=== PATIENT | female | born 1945 | race Caucasian/White ===

== ENCOUNTER → 2016-08-21 | Outpatient (CLI) | payer OTHER | LOC: BMCIMAGING 14:07 | PROVIDERS: ATTEND Physician Assistant | DX: M17.0 Bilateral primary osteoarthritis of knee (principal) ==

== ENCOUNTER → 2017-04-18 | Outpatient (CLI) | payer OTHER | LOC: BMCIMAGING 13:40 | PROVIDERS: ATTEND Nurse Practitioner Adult Health | DX: J98.4 Other disorders of lung (principal); I51.7 Cardiomegaly; K44.9 Diaphragmatic hernia without obstruction or gangrene; Z87.891 Personal history of nicotine dependence ==

== ENCOUNTER → 2018-01-07 | Outpatient (CLI) | payer OTHER | LOC: FIMAGING 12:48 | PROVIDERS: ATTEND Orthopaedic Surgery | DX: Z01.818 Encounter for other preprocedural examination (principal); M17.11 Unilateral primary osteoarthritis, right knee ==

== ENCOUNTER 2018-01-30 07:15 | Inpatient (IN) | payer OTHER ==
--- NOTE | 2018-01-30 06:35 | PDHPUP ---
History & Physical Update H&P update statement: This history and physical update is based on an assessment of the patient which was completed after admission or registration (within 24 hours), but prior to the surgery/procedure. H&P update: no change in patient's condition since H&P completed
--- NOTE | 2018-01-30 06:35 | PDIAF ---
- Diagnosis Diagnosis: right knee djd Code Status: Full Code - Medication Management Discharge Medications: Medications to Continue on Transfer Herbals/Supplements -Info Only 1 each PO AD 07/07/12 [Last Taken 10/26/14 08:00] Lisinopril [Zestril 20 mg (RX)] 20 mg PO DAILY 07/07/12 [Last Taken 10/26/14 08: 00] Ascorbic Acid [Vitamin C 500 mg (*)] 500 mg PO DAILY 01/14/18 [Last Taken Unknown] Aspirin [Aspirin 81mg (*)] 81 mg PO Q2D 01/14/18 [Last Taken Unknown] Cyanocobalamin [Vitamin B12 (*)] 1,000 mcg PO DAILY 01/14/18 [Last Taken Unknown ] Docusate Sodium [Colace 100 MG (*)] 100 mg PO BID 01/14/18 [Last Taken Unknown] Ferrous Sulfate [Slow Fe 140 MG (*)] 140 mg PO DAILY 01/14/18 [Last Taken Unknown] Multivitamins [Multivitamin (*)] 1 each PO DAILY 01/14/18 [Last Taken Unknown] clonazePAM [Klonopin (*)] 0.5 mg PO HS PRN 01/14/18 [Last Taken Unknown] Discharge Medications: Refer to the Discharge Home Medication list for PRN reason. - Orders Services needed: Physical Therapy Isolation Type: None Diet Recommendation: no restrictions on diet Diet Texture: Regular Texture Diet Additional Instructions: TOTAL JOINT ARTHROPLASTY DISCHARGE INSTRUCTIONS 1. Your surgeon follows the [facility] protocol for reducing your risk of DVT (blood clots) following surgery. Medication will be ordered to prevent blood clots. A sudden increase in calf pain and/or swelling could indicate a blood clot in your leg. If this occurs, please call your surgeon or his/her assistant signal maintainer. An ultrasound of the leg may be necessary to diagnose a blood clot. If you have conditions that make you a higher risk for blood clots, your surgeon may use more aggressive ways to prevent them. Notify your surgeon if you think you are a high risk for blood clots. 2. Wear your white surgical stockings (GENESIS hose) for 2 weeks. This decreases your swelling and may help prevent blood clots. It is ok to remove GENESIS hose at night time to give your legs a break. 3. Swelling and bruising in the surgical leg is common. If you feel that it is excessive, please notify your surgeon. 4. Elevate your surgical leg with the ankle above the hip several times every day. Please keep the leg straight when you elevate by putting pillows under your foot. Do not put pillows under your knee. This will make being able to fully straighten more difficult. This is uncomfortable, but try to do it as much as possible. 5. For total knee replacements use compressive wrap on your knee for 3-5 days after surgery, then you can discontinue it. 6. Use a walker or crutches for 1-2 weeks. Progress your weight-bearing as tolerated. You may start to use a cane when you feel stable and safe. 7. You will receive physical therapy instructions in the hospital. Continue those exercises at home. There are additional exercises in the total joint booklet you were given before surgery. Outpatient physical therapy will begin 7- 10 days after surgery. Please schedule this in advance. 8. Use ice on your knee at least 3-5 times every day for 30 minutes. This helps reduce pain and swelling. Also use it at night before falling asleep. 9. Leave your surgical dressing in place for 2 weeks. Your dressing is water resistant, but not waterproof. Cover it with Saran Wrap or Mifjo-q-Aujc before showering. You may shower as soon as you feel safe entering a shower. If you notice bleeding from your incision 2 or 3 days after surgery, please notify your surgeon. 10. Due to narcotics, decreased activity and altered diet, most patients experience constipation after surgery. Use brtg-kjd-wwspsyl stool softeners while you are on narcotics. 11. You may drive a car when you are comfortable bearing weight, have good muscular control of your leg and are off narcotics. This usually occurs 2-4 weeks after surgery, depending on which leg was operated on. 12. If there are questions not addressed here, please refer the [facility] book given for more information. If you still have questions, please contact your surgeon s office. 13. If you have a life-threatening emergency, please call 911 and go to the emergency room immediately. For non-life threatening emergencies, please call your physicians office for advice before going to the emergency room. - Follow Up Care Current Providers and Referrals: Toyin Raza MD [Primary Care Provider] - Twan Carrera MD [Medical Doctor] -
[~2018-01-30 07:15] MED LIST: ROPIVACAINE 0.2% 80 MG, EPINEPHrine 0.2 MG, KETOROLAC TROMETHAMINE 30 MG, morphINE 10 M... IU ONE; TRANEXAMIC ACID 1,000 MG in NS 100 ML IV ONE
[2018-01-30] MEDS ORDERED: FAMOTIDINE 20 MG TAB PO ONE (07:51)
[2018-01-30] MEDS ORDERED: ceFAZolin 2 GM/DEXTROSE 100 ML IV ONE (07:51)
[2018-01-30] MEDS ORDERED: ACETAMINOPHEN 325 MG TAB PO ONE (07:51)
[2018-01-30] MEDS ORDERED: LR 1,000 ML IV ONE (07:55)
[2018-01-30] MEDS ORDERED: CALCIUM CHLORIDE 1 GM/10 ML INJ ONE (08:42)
[2018-01-30] MEDS ORDERED: THROMBIN (BOVINE) 5,000 UNIT VIAL TP ONE (08:42)
[2018-01-30] MEDS ORDERED: ceFAZolin 1 GM/5 ML SYR ONE (08:43)
[2018-01-30] MEDS ORDERED: fentaNYL 100 MCG/2 ML INJ IVP PRN (08:49)
[2018-01-30] MEDS ORDERED: ACETAMINOPHEN 500 MG TAB PO PRN (08:49)
[2018-01-30] MEDS ORDERED: MIDAZOLAM 2 MG/2 ML VIAL IVP ONE (08:49)
[2018-01-30] MEDS ORDERED: DEXAMETHASONE 4 MG/ML VIAL IVP PRN (08:49)
[2018-01-30] MEDS ORDERED: oxyCODONE IR 5 MG TAB PO PRN (08:49)
[2018-01-30] MEDS ORDERED: ONDANSETRON 4 MG/2 ML VIAL IVP PRN ×2 (08:49→11:31)
[2018-01-30] MEDS ORDERED: ALBUTEROL 3 ML DEYVIAL IH PRN (08:49)
[2018-01-30] MEDS ORDERED: NALOXONE HCL 0.4 MG/ML INJ IVP PRN (08:49)
--- NOTE | 2018-01-30 08:50 | PDANEPAE ---
ANE History of Present Illness r knee ANE Past Medical History - Cardiovascular History Hx Hypertension: Yes Hx Arrhythmias: No Hx Chest Pain: No Hx Coronary Artery / Peripheral Vascular Disease: No Hx CHF / Valvular Disease: No Hx Palpitations: No Cardiovascular History Comment: left bundle branch block - Pulmonary History Hx COPD: No Hx Asthma/Reactive Airway Disease: No Hx Recent Upper Respiratory Infection: No Hx Oxygen in Use at Home: No Hx Sleep Apnea: No Sleep Apnea Screening Result - Last Documented: Negative - Neurologic History Hx Cerebrovascular Accident: No Hx Seizures: No Hx Dementia: No - Endocrine History Hx Diabetes: No - Renal History Hx Renal Disorders: No - Liver History Hx Hepatic Disorders: No Hepatic History Comment: dick - Neurological & Psychiatric Hx Hx Neurological and Psychiatric Disorders: No - Cancer History Hx Cancer: Yes 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 - Congenital Disorder History Hx Congenital Disorders: No - GI History Hx Gastrointestinal Disorders: No - Other Health History Other Health History: R chronic sciatica with leg weakness - Chronic Pain History Chronic Pain: No - Surgical History Prior Surgeries: Right shoulder partial replacemnt, Cholecystectomy, ANE Review of Systems Review of Systems: - Exercise capacity METS (RN): 4 METS ANE Patient History - Allergies Allergies/Adverse Reactions: levofloxacin [From Levaquin] Allergy (Severe, Verified 10/11/10 10:28) JOINT PAIN - Home Medications Home Medications: Herbals/Supplements -Info Only 1 each PO AD 07/07/12 [Last Taken 1 Week Ago ~12/03] Lisinopril [Zestril 20 mg (RX)] 20 mg PO DAILY 07/07/12 [Last Taken 01/29/18 06: 00] Ascorbic Acid [Vitamin C 500 mg (*)] 500 mg PO DAILY 01/14/18 [Last Taken 06:00] Aspirin [Aspirin 81mg (*)] 81 mg PO Q2D 01/14/18 [Last Taken 1 Week Ago ~] Cyanocobalamin [Vitamin B12 (*)] 1,000 mcg PO DAILY 01/14/18 [Last Taken 1 Week Ago ~01/23/18] Docusate Sodium [Colace 100 MG (*)] 100 mg PO BID 01/14/18 [Last Taken 01/28/18] Ferrous Sulfate [Slow Fe 140 MG (*)] 140 mg PO DAILY 01/14/18 [Last Taken 06:00] Multivitamins [Multivitamin (*)] 1 each PO DAILY 01/14/18 [Last Taken 1 Week Ago ~01/23/18] clonazePAM [Klonopin (*)] 0.5 mg PO HS PRN 01/14/18 [Last Taken 1 Week Ago ~12/03] - NPO status NPO Since - Liquids (Date): 01/29/18 NPO Since - Liquids (Time): 21:00 NPO Since - Solids (Date): 01/29/18 NPO Since - Solids (Time): 18:00 - Smoking Hx Smoking Status: Former smoker - Family Anes Hx Family Hx Anesthesia Complications: no ANE Labs/Vital Signs - Vital Signs Blood Pressure: 163/95 Heart Rate: 87 Respiratory Rate: 15 O2 Sat (%): 91 Height: 173.36 cm Weight: 98.883 kg ANE Physical Exam - Airway Neck exam: FROM Mallampati Score: Class 2 - Pulmonary Pulmonary: clear to auscultation - Cardiovascular Cardiovascular: regular rate and rhythym - ASA Status ASA Status: II ANE Anesthesia Plan Anesthesia Plan: spinal Total IV Anesthesia: Yes
[2018-01-30] MEDS ORDERED: PROPOFOL/EMULSION 500 MG/50 ML BOTTLE IV ONE ×2 (08:51→10:41)
[2018-01-30] MEDS ORDERED: LIDOCAINE 2% 2 ML INJ ONE ×2 (08:51)
[2018-01-30] MEDS ORDERED: MIDAZOLAM 2 MG/2 ML VIAL ONE (08:52)
[2018-01-30] MEDS ORDERED: DEXAMETHASONE 4 MG/ML VIAL ONE (08:53)
[2018-01-30] MEDS ORDERED: BUPIVACAINE/DEXTROSE 7.5MG/ML 2 ML SPINAL AMP SP ONE (08:53)
[2018-01-30] MEDS ORDERED: ONDANSETRON 4 MG/2 ML VIAL ONE (08:53)
[2018-01-30] MEDS ORDERED: ROPIVACAINE HCL 150 MG/30 ML INJ ONE (11:30)
[2018-01-30] MEDS ORDERED: MAGNESIUM HYDROXIDE 30 ML UDCUP PO PRN (11:31)
[2018-01-30] MEDS ORDERED: PROMETHAZINE HCL 25 MG/ML INJ IVP PRN (11:31)
[2018-01-30] MEDS ORDERED: TEMAZEPAM 15 MG CAP PO PRN (11:31)
[2018-01-30] MEDS ORDERED: ONDANSETRON DISINTEGRATING 4 MG TAB PO PRN (11:31)
[2018-01-30] MEDS ORDERED: BISACODYL 10 MG SUPP PR PRN (11:31)
[2018-01-30] MEDS ORDERED: METOCLOPRAMIDE 10 MG/2 ML VIAL IVP PRN (11:31)
[2018-01-30] MEDS ORDERED: diphenhydrAMINE 25 MG CAP PO PRN (11:31)
[2018-01-30] MEDS ORDERED: LACTULOSE 20 GM/30 ML UDCUP PO PRN (11:31)
[2018-01-30] MEDS ORDERED: PROMETHAZINE HCL 25 MG SUPPR PR PRN (11:31)
[2018-01-30] MEDS ORDERED: POLYETHYLENE GLYCOL 3350 17 GM PKT PO PRN (11:31)
[2018-01-30] MEDS ORDERED: DIPHENOXYLATE/ATROPINE LOMOTIL 1 TAB PO PRN (11:31)
--- NOTE | 2018-01-30 11:31 | POSTOPPROG ---
Post Op Note Date of Operation: 01/30/18 Surgeon: Twan Carrera Hardboard Supervisor: chauncey Anesthesiologist: jerardo Anesthesia: Spinal Pre-op Diagnosis: right knee djd Post-op Diagnosis: same Indication: same Procedure: right tka, orif right femoral condyle Inf/Abcess present in the surg proc area at time of surgery?: No Depth: Deep Incisional (Fascial) EBL: 100-500
[2018-01-30] MEDS ORDERED: clonazePAM 0.5 MG TAB PO PRN (11:34)
--- NOTE | 2018-01-30 11:47 | POSTANESTH ---
Post Anesthetic Evaluation Cardiovascular Status: Normal, Stable Respiratory Status: Normal, Stable Level of Consciousness/Mental Status: Can Participate in Eval, Alert and Oriented Pain Control: Adequate, Prn Tx Ordered Nausea/Vomiting Control: Adequate, Prn Tx Ordered Complications Possibly Related to Anesthesia: None Noted
[2018-01-30] MEDS ORDERED: LR 1,000 ML IV SCH (12:00)
[2018-01-30] MEDS: ACETAMINOPHEN 325 MG TAB PO SCH ×2 (13:09→17:11)
--- NOTE | 2018-01-30 13:19 | PDMN ---
Medical Necessity Medical necessity: [facility] [place]: 72 y/o s/p CPT 58790 R TKA w/ Jonathon and ORIF R femoral condyle "to be done inpt @ [facility] per Medicare Guidelines" w/ anticipated 2 day stay, no auth req. PT/OT evals. Hx cardiac L BBB, HTN, R shoulder partial replacement.
--- NOTE | 2018-01-30 16:15 | SOAPPROG ---
SOAP Progress Note Assessment/Plan: Assessment: s/p right tka supracondylar femur fx Plan: tdwb spent 20 min in discussion and review of intraop fx she is rom as joelle but no wb for 6 weeks may need snf 01/30/18 16:12 Subjective: mild pain no cp or sob Objective: Vital Signs Temp Pulse Resp BP Pulse Ox 36.7 C 93 16 160/84 H 96 01/30/18 15:37 01/30/18 15:37 01/30/18 15:37 01/30/18 15:37 01/30/18 15:37 01/29/18 01/30/18 01/31/18 05:59 05:59 05:59 Intake Total 1510 Output Total 30 Balance 1480 dressing intact intact pdf,ehl toes warm and pink neg homans joe xrays with med supracondylar fx stabilized minimally displaced ICD10 Worksheet Patient Problems: Problems Problem Status Onset Benign hypertension Active Cholecystitis Active Obesity Active
[2018-01-30] MEDS: oxyCODONE IR 5 MG TAB PO PRN ×2 (17:10→17:58)
[2018-01-30] MEDS: TRANEXAMIC ACID 650 MG TAB PO SCH (17:11)
[2018-01-30] MEDS: ceFAZolin 2 GM/DEXTROSE 100 ML IV SCH (17:12)
--- NOTE | 2018-01-30 19:12 | SOAPPROG ---
SOAP Progress Note Assessment/Plan: Assessment: s/p right tka supracondylar femur fx Plan: tdwb spent 20 min in discussion and review of intraop fx she is rom as joelle but no wb for 6 weeks may need snf developed episode of 10/10 sudden pain over lower leg and cannot dorsiflex foot by report ordered xrays of tib fib given the sudden onset with no evidence of fx or acute process. I have relayed to charge nurse to position knee in 30 deg flexion, loosen delma wrap and brace to avoid pressure on peroneal nerve. will follow. 01/30/18 16:12 01/30/18 19:10 Objective: Vital Signs Temp Pulse Resp BP Pulse Ox 36.7 C 93 16 160/84 H 96 01/30/18 15:37 01/30/18 15:37 01/30/18 15:37 01/30/18 15:37 01/30/18 15:37 01/29/18 01/30/18 01/31/18 05:59 05:59 05:59 Intake Total 1510 Output Total 430 Balance 1080 ICD10 Worksheet Patient Problems: Problems Problem Status Onset Benign hypertension Active Cholecystitis Active Obesity Active
[2018-01-30] MEDS: SENNOSIDES/DOCUSATE SODIUM TAB PO SCH (20:57)
[2018-01-30] MEDS: DOCUSATE SODIUM 100 MG CAP PO SCH (20:58)
[2018-01-30] MEDS: FAMOTIDINE 20 MG TAB PO SCH (20:58)
[2018-01-30] MEDS: ASPIRIN 325 MG TAB PO SCH (20:58)
[2018-01-30] MEDS: CYCLOBENZAPRINE 10 MG TAB PO PRN (21:07)
[2018-01-31] MEDS: TRANEXAMIC ACID 650 MG TAB PO SCH ×2 (00:50→09:57)
[2018-01-31] MEDS: ceFAZolin 2 GM/DEXTROSE 100 ML IV SCH (00:50)
[2018-01-31] MEDS: ACETAMINOPHEN 325 MG TAB PO SCH ×5 (00:50→17:24)
--- NOTE | 2018-01-31 07:46 | SOAPPROG ---
SOAP Progress Note Assessment/Plan: Assessment: s/p right tka supracondylar femur fx Plan: tdwb rom when nonweightbearing will need snf 01/30/18 16:12 01/30/18 19:10 01/31/18 07:45 Subjective: mild pain no current numbness Objective: Vital Signs Temp Pulse Resp BP Pulse Ox 36.5 C 62 16 155/70 H 96 01/31/18 04:00 01/31/18 04:00 01/31/18 04:00 01/31/18 04:00 01/31/18 04:00 Laboratory Results 01/31/18 04:40 01/30/18 01/31/18 02/01/18 05:59 05:59 05:59 Intake Total 2560 Output Total 1280 Balance 1280 dressing intact brace intact intact pf,df,ehl toes warm and pink neg homans joe brisk cap refil <2 sec sensation intact to light touch joe lower ext xrays of tib/fib wnl no fx or lucency ICD10 Worksheet Patient Problems: Problems Problem Status Onset Benign hypertension Active Cholecystitis Active Obesity Active
[2018-01-31] MEDS: ASPIRIN 325 MG TAB PO SCH (09:56)
[2018-01-31] MEDS: SENNOSIDES/DOCUSATE SODIUM TAB PO SCH ×2 (09:56→20:59)
[2018-01-31] MEDS: FAMOTIDINE 20 MG TAB PO SCH ×2 (09:57→20:59)
[2018-01-31] MEDS: FERROUS SULFATE 140 MG TAB.ER PO SCH (09:57)
[2018-01-31] MEDS: LISINOPRIL 20 MG TAB PO SCH (09:57)
[2018-01-31] MEDS: DOCUSATE SODIUM 100 MG CAP PO SCH ×2 (09:58→20:59)
[2018-01-31] MEDS: oxyCODONE IR 5 MG TAB PO PRN ×4 (13:25→21:00)
--- NOTE | 2018-01-31 14:58 | ASMTCMCOM ---
CM Note CM Note Notes: Pt is s/p R TKA. PT/OT recommending SNF d/c.Pt lives alone in [place]. Discussed options with pt and she would like a referral sent to [facility]. Referral sent via [employer]. Earliest d/c would be Friday02/02/18. D/C plan: [facility], hopefully [facility] Date Signed: 01/31/2018 02:57 PM Electronically Signed By:DOROTEO Liang
[2018-01-31] MEDS: CYCLOBENZAPRINE 10 MG TAB PO PRN (15:52)
[2018-02-01] MEDS: ACETAMINOPHEN 325 MG TAB PO SCH ×5 (00:42→23:47)
[2018-02-01] MEDS: CYCLOBENZAPRINE 10 MG TAB PO PRN (00:43)
--- NOTE | 2018-02-01 07:41 | SOAPPROG ---
SOAP Progress Note Assessment/Plan: Assessment: s/p right tka supracondylar femur fx Plan: tdwb rom when nonweightbearing will need snf d/c tomorrow 01/30/18 16:12 01/30/18 19:10 01/31/18 07:45 02/01/18 07:40 Subjective: mild pain no cp or sob Objective: Vital Signs Temp Pulse Resp BP Pulse Ox 36.6 C 72 16 128/58 H 94 02/01/18 00:00 02/01/18 00:00 02/01/18 00:00 02/01/18 00:00 02/01/18 00:00 Laboratory Results 02/01/18 04:30 01/31/18 02/01/18 02/02/18 05:59 05:59 05:59 Intake Total 2560 2000 Output Total 1280 1300 Balance 1280 700 2+edema to foot no calf swelling or ttp intact pf,df,ehl neg homans joe warm and pink sensation intact to light touch throughout ICD10 Worksheet Patient Problems: Problems Problem Status Onset Benign hypertension Active Cholecystitis Active Obesity Active
[2018-02-01] MEDS: DOCUSATE SODIUM 100 MG CAP PO SCH ×2 (10:16→21:47)
[2018-02-01] MEDS: ASPIRIN 325 MG TAB PO SCH (10:16)
[2018-02-01] MEDS: FERROUS SULFATE 140 MG TAB.ER PO SCH (10:16)
[2018-02-01] MEDS: SENNOSIDES/DOCUSATE SODIUM TAB PO SCH ×2 (10:16→21:46)
[2018-02-01] MEDS: FAMOTIDINE 20 MG TAB PO SCH ×2 (10:17→21:47)
[2018-02-01] MEDS: LISINOPRIL 20 MG TAB PO SCH (10:18)
[2018-02-02] MEDS: ACETAMINOPHEN 325 MG TAB PO SCH ×2 (06:10→12:30)
--- NOTE | 2018-02-02 06:19 | SOAPPROG ---
SOAP Progress Note Assessment/Plan: Assessment: s/p right tka supracondylar femur fx Plan: tdwb rom when nonweightbearing will need snf duplex u/s r/o dvt given increased swelling to right lower ext start lovenox and d/c aspirin d/c after u/s 01/30/18 16:12 01/30/18 19:10 01/31/18 07:45 02/01/18 07:40 02/02/18 06:17 Subjective: no cp or sob mild pain only Objective: Vital Signs Temp Pulse Resp BP Pulse Ox 36.7 C 92 20 152/75 H 95 02/01/18 23:49 02/01/18 23:49 02/01/18 23:49 02/01/18 23:49 02/01/18 23:49 Laboratory Results 02/01/18 04:30 02/01/18 02/02/18 02/03/18 05:59 05:59 05:59 Intake Total 2000 600 Output Total 1300 900 Balance 700 -300 dressing changed intact pdf,ehl toes warm and pink neg homans joe 2+ pitting edema to right lower ext ICD10 Worksheet Patient Problems: Problems Problem Status Onset Benign hypertension Active Cholecystitis Active Obesity Active
--- NOTE | 2018-02-02 06:21 | PDIAF ---
- Diagnosis Diagnosis: right knee djd Code Status: Full Code - Medication Management Discharge Medications: Medications to Continue on Transfer Herbals/Supplements -Info Only 1 each PO AD 07/07/12 [Last Taken 1 Week Ago ~12/03] Lisinopril [Zestril 20 mg (*)] 20 mg PO DAILY 07/07/12 [Last Taken 01/29/18 06: 00] Ascorbic Acid [Vitamin C 500 mg (*)] 500 mg PO DAILY 01/14/18 [Last Taken 06:00] Aspirin [Aspirin 81mg (*)] 81 mg PO Q2D 01/14/18 [Last Taken 1 Week Ago ~] Cyanocobalamin [Vitamin B12 (*)] 1,000 mcg PO DAILY 01/14/18 [Last Taken 1 Week Ago ~01/23/18] Docusate Sodium [Colace 100 MG (*)] 100 mg PO BID 01/14/18 [Last Taken 01/28/18] Ferrous Sulfate [Slow Fe 140 MG (*)] 140 mg PO DAILY 01/14/18 [Last Taken 06:00] Multivitamins [Multivitamin (*)] 1 each PO DAILY 01/14/18 [Last Taken 1 Week Ago ~01/23/18] clonazePAM [Klonopin (*)] 0.5 mg PO HS PRN 01/14/18 [Last Taken 1 Week Ago ~12/03] Enoxaparin [Lovenox] 30 mg SC BID #14 syr 02/02/18 [Last Taken Unknown] oxyCODONE IR [Oxycodone Ir (*)] 5 - 10 mg PO Q3HRS PRN #50 tab 02/02/18 [Last Taken Unknown] Discharge Medications: Refer to the Discharge Home Medication list for PRN reason. - Orders Services needed: Physical Therapy, Occupational Therapy Isolation Type: None Diet Recommendation: no restrictions on diet Diet Texture: Regular Texture Diet Additional Instructions: TDWB only right lower ext rom as tolerated TOTAL JOINT ARTHROPLASTY DISCHARGE INSTRUCTIONS 1. Your surgeon follows the [facility] protocol for reducing your risk of DVT (blood clots) following surgery. Medication will be ordered to prevent blood clots. A sudden increase in calf pain and/or swelling could indicate a blood clot in your leg. If this occurs, please call your surgeon or his/her anesthesiologist assistant. An ultrasound of the leg may be necessary to diagnose a blood clot. If you have conditions that make you a higher risk for blood clots, your surgeon may use more aggressive ways to prevent them. Notify your surgeon if you think you are a high risk for blood clots. 2. Wear your white surgical stockings (GENESIS hose) for 2 weeks. This decreases your swelling and may help prevent blood clots. It is ok to remove GENESIS hose at night time to give your legs a break. 3. Swelling and bruising in the surgical leg is common. If you feel that it is excessive, please notify your surgeon. 4. Elevate your surgical leg with the ankle above the hip several times every day. Please keep the leg straight when you elevate by putting pillows under your foot. Do not put pillows under your knee. This will make being able to fully straighten more difficult. This is uncomfortable, but try to do it as much as possible. 5. For total knee replacements use compressive wrap on your knee for 3-5 days after surgery, then you can discontinue it. 6. Use a walker or crutches for 1-2 weeks. Progress your weight-bearing as tolerated. You may start to use a cane when you feel stable and safe. 7. You will receive physical therapy instructions in the hospital. Continue those exercises at home. There are additional exercises in the total joint booklet you were given before surgery. Outpatient physical therapy will begin 7- 10 days after surgery. Please schedule this in advance. 8. Use ice on your knee at least 3-5 times every day for 30 minutes. This helps reduce pain and swelling. Also use it at night before falling asleep. 9. Leave your surgical dressing in place for 2 weeks. Your dressing is water resistant, but not waterproof. Cover it with Saran Wrap or Atsvi-j-Qpug before showering. You may shower as soon as you feel safe entering a shower. If you notice bleeding from your incision 2 or 3 days after surgery, please notify your surgeon. 10. Due to narcotics, decreased activity and altered diet, most patients experience constipation after surgery. Use cvni-evh-bmehcul stool softeners while you are on narcotics. 11. You may drive a car when you are comfortable bearing weight, have good muscular control of your leg and are off narcotics. This usually occurs 2-4 weeks after surgery, depending on which leg was operated on. 12. If there are questions not addressed here, please refer the [facility] book given for more information. If you still have questions, please contact your surgeon s office. 13. If you have a life-threatening emergency, please call 911 and go to the emergency room immediately. For non-life threatening emergencies, please call your physicians office for advice before going to the emergency room. - Follow Up Care Current Providers and Referrals: Toyin Raza MD [Primary Care Provider] - Twan Carrera MD [Medical Doctor] -
[2018-02-02 08:23] VITALS: BP 141/72
[2018-02-02] MEDS: LISINOPRIL 20 MG TAB PO SCH (08:44)
[2018-02-02] MEDS: SENNOSIDES/DOCUSATE SODIUM TAB PO SCH (08:44)
[2018-02-02] MEDS: FERROUS SULFATE 140 MG TAB.ER PO SCH (08:45)
[2018-02-02] MEDS: DOCUSATE SODIUM 100 MG CAP PO SCH (08:45)
[2018-02-02] MEDS: FAMOTIDINE 20 MG TAB PO SCH (08:45)
[2018-02-02] MEDS ORDERED: ENOXAPARIN 30 MG/0.3 ML SYR SC SCH (09:00)
--- NOTE | 2018-02-02 11:26 | PDIAF ---
- Diagnosis Diagnosis: right knee djd Code Status: Full Code - Medication Management Discharge Medications: Medications to Continue on Transfer Herbals/Supplements -Info Only 1 each PO AD 07/07/12 [Last Taken 1 Week Ago ~12/03] Lisinopril [Zestril 20 mg (*)] 20 mg PO DAILY 07/07/12 [Last Taken 01/29/18 06: 00] Ascorbic Acid [Vitamin C 500 mg (*)] 500 mg PO DAILY 01/14/18 [Last Taken 06:00] Cyanocobalamin [Vitamin B12 (*)] 1,000 mcg PO DAILY 01/14/18 [Last Taken 1 Week Ago ~01/23/18] Docusate Sodium [Colace 100 MG (*)] 100 mg PO BID 01/14/18 [Last Taken 01/28/18] Ferrous Sulfate [Slow Fe 140 MG (*)] 140 mg PO DAILY 01/14/18 [Last Taken 06:00] Multivitamins [Multivitamin (*)] 1 each PO DAILY 01/14/18 [Last Taken 1 Week Ago ~01/23/18] clonazePAM [Klonopin (*)] 0.5 mg PO HS PRN 01/14/18 [Last Taken 1 Week Ago ~12/03] Enoxaparin [Lovenox] 30 mg SC BID #14 syr 02/02/18 [Last Taken Unknown] oxyCODONE IR [Oxycodone Ir (*)] 5 - 10 mg PO Q3HRS PRN #50 tab 02/02/18 [Last Taken Unknown] Discharge Medications: Refer to the Discharge Home Medication list for PRN reason. - Orders Services needed: Physical Therapy, Occupational Therapy Isolation Type: None Diet Recommendation: no restrictions on diet Diet Texture: Regular Texture Diet Additional Instructions: TDWB only right lower ext rom as tolerated TOTAL JOINT ARTHROPLASTY DISCHARGE INSTRUCTIONS 1. Your surgeon follows the [facility] protocol for reducing your risk of DVT (blood clots) following surgery. Medication will be ordered to prevent blood clots. A sudden increase in calf pain and/or swelling could indicate a blood clot in your leg. If this occurs, please call your surgeon or his/her licensed investment sales assistant. An ultrasound of the leg may be necessary to diagnose a blood clot. If you have conditions that make you a higher risk for blood clots, your surgeon may use more aggressive ways to prevent them. Notify your surgeon if you think you are a high risk for blood clots. 2. Wear your white surgical stockings (GENESIS hose) for 2 weeks. This decreases your swelling and may help prevent blood clots. It is ok to remove GENESIS hose at night time to give your legs a break. 3. Swelling and bruising in the surgical leg is common. If you feel that it is excessive, please notify your surgeon. 4. Elevate your surgical leg with the ankle above the hip several times every day. Please keep the leg straight when you elevate by putting pillows under your foot. Do not put pillows under your knee. This will make being able to fully straighten more difficult. This is uncomfortable, but try to do it as much as possible. 5. For total knee replacements use compressive wrap on your knee for 3-5 days after surgery, then you can discontinue it. 6. Use a walker or crutches for 1-2 weeks. Progress your weight-bearing as tolerated. You may start to use a cane when you feel stable and safe. 7. You will receive physical therapy instructions in the hospital. Continue those exercises at home. There are additional exercises in the total joint booklet you were given before surgery. Outpatient physical therapy will begin 7- 10 days after surgery. Please schedule this in advance. 8. Use ice on your knee at least 3-5 times every day for 30 minutes. This helps reduce pain and swelling. Also use it at night before falling asleep. 9. Leave your surgical dressing in place for 2 weeks. Your dressing is water resistant, but not waterproof. Cover it with Saran Wrap or Svyev-m-Kuxc before showering. You may shower as soon as you feel safe entering a shower. If you notice bleeding from your incision 2 or 3 days after surgery, please notify your surgeon. 10. Due to narcotics, decreased activity and altered diet, most patients experience constipation after surgery. Use dxya-bvc-lccegnu stool softeners while you are on narcotics. 11. You may drive a car when you are comfortable bearing weight, have good muscular control of your leg and are off narcotics. This usually occurs 2-4 weeks after surgery, depending on which leg was operated on. 12. If there are questions not addressed here, please refer the [facility] book given for more information. If you still have questions, please contact your surgeon s office. 13. If you have a life-threatening emergency, please call 911 and go to the emergency room immediately. For non-life threatening emergencies, please call your physicians office for advice before going to the emergency room. - Follow Up Care Current Providers and Referrals: Toyin Raza MD [Primary Care Provider] - Twan Carrera MD [Medical Doctor] - (typically 2 weeks or as discussed with MD)
--- NOTE | 2018-02-02 11:58 | ASMTDCNOTE ---
Case Management Discharge Discharge Order Complete? Answers: Yes Patient to Obtain Answers: Other Notes: [facility] Medications Transportation Arranged Answers: Other Notes: [facility] Transport will Pick (Date 02/02/2018 02:00 PM & Time) Faxed Final Orders Answers: Yes Family Notified Answers: Yes Discharge Comments Notes: Patient discharged to [facility]. Transport arranged by Sint[facility] @ [facility]. Patient notified her sister. NANNETTE Segura to call report Date Signed: 02/02/2018 11:58 AM Electronically Signed By:Alberta Hannah RN
--- NOTE | 2018-02-03 07:30 | GDS ---
ADMIT DIAGNOSIS: Right knee degenerative joint disease. DISCHARGE DIAGNOSES: 1. Right knee degenerative joint disease. 2. Right medial supracondylar femur fracture. PROCEDURE: 1. Right total knee arthroplasty-MAKOplasty. 2. Open reduction internal fixation right supracondylar femur fracture-medial femoral condyle. HISTORY OF PRESENT ILLNESS: The patient is a 72-year-old woman who has end-stage arthritis. She pre sented for elective total knee replacement. HOSPITAL COURSE: The patient was admitted to the hospital floor after undergoing right total knee ar throplasty. Intraoperatively, she sustained a fracture of the medial femoral condyle which was repai red with internal fixation. Postoperatively, her therapy course was protracted given the touchdown w eightbearing status. Decision was made to proceed with subacute nursing facility placement. She the refore stayed 3 midnights for Medicare clearance. At the time of transfer, she is tolerating an oral diet. Pain is well controlled on oral medicine. She is voiding without difficulty. Her dressing i s clean, dry, and intact. She does have swelling to her lower extremity. An ultrasound was obtained which demonstrated no evidence of deep venous thrombosis. DISCHARGE ACTIVITY: She is touchdown weightbearing. She is to use the brace at all times. Range of motion as tolerated. Encouraged ankle and calf range of motion while in bed. Keep the dressing tang an, dry, and intact. If it becomes saturated, then change on a daily basis. Seek attention for incr easing leg pain, swelling, chest pain, shortness of breath, numbness, tingling or other focal complai nts. Followup in 2 weeks otherwise. DISCHARGE MEDICATIONS: Lovenox 30 mg subcu b.i.d. for 2 weeks, then aspirin 325 mg p.o. daily for 6 weeks, and oxycodone 5 mg 1-2 every 6 hours p.r.n. pain. /[id number]/MODL
--- NOTE | 2018-02-03 07:35 | GOP ---
DATE OF OPERATION: 01/30/2018 SURGEON: Twan Carrera MD ABSTRACTOR: Jose Romano, regional vice president surgical sales, who was a medical necessity for the entirety of the case. PREOPERATIVE DIAGNOSIS: Right knee degenerative joint disease. POSTOPERATIVE DIAGNOSIS: Right knee degenerative joint disease. PROCEDURE PERFORMED: 1. Right total knee arthroplasty-MAKOplasty. 2. ORIF, right supracondylar femur fracture. FINDINGS: INDICATIONS: The patient is a 72-year-old woman with end-stage arthritis to her right knee. Clinica l and radiographic features are consistent with this. She has failed all attempts at conservative ma nagement. I have recommended operative intervention with total knee replacement. She understood the risks, benefits, and alternatives. DESCRIPTION OF PROCEDURE: The patient was identified in the preanesthesia area. The right knee juancarlos rly demarcated as the operative site with indelible marker. She was given 2 g of Ancef intravenously en route to the operative suite. In the OR, a spinal anesthetic was placed followed by sedation. S he was positioned in supine position. Attention was turned to the right knee which was sterilely pre pped and draped in the usual fashion. Appropriate time-out procedure was carried out. The limb was exsanguinated with Esmarch bandage and the tourniquet inflated to 275 mmHg. A standard anterior midl ine incision was made. Thick subcutaneous flaps were elevated followed by medial parapatellar arthro jan. Subperiosteal elevation was carried out to the mid coronal plane. Retractors were placed. Th e knee was brought to a flexed position. There was tricompartmental arthritis. Decision was made to proceed with total knee arthroplasty. Two pins were then placed across the medial to lateral aspect of the femur. A femoral reference array was affixed followed by femoral check point. A separate pe rcutaneous incision was made over the mid tibia and 2 pins were then placed in this area with a tibia l reference array affixed. Tibial check point was placed. The knee was taken through a full flexion -extension arc. The knee was balanced with soft tissue release and software manipulation. Using the MAKOplasty robot, resections were made for a size 5 femur, size 4 tibia. During cutting of the troc hlear notch and removal of the notch guide, it was noticed that there was a fracture through the medi al femoral condyle extending into the supracondylar femur region. This was minimally displaced. Thi s was reduced with a pointed tenaculum and secured with two 6.5 mm screws and washers across the medi al femoral condyle into the distal medial shaft. The trial reduction with the femoral implant was th en carried out. Ultimately, a size 16 mm thickness polyethylene spacer was then placed. The knee wo uld come to full extension and flexion of 125 degrees was stable through the flexion-extension arc an d appropriate. The trial components were carefully withdrawn. The final size 4 tibia was then press fit. A size 5 femur was then press-fit and securely seated across the medial and lateral femoral co ndyles. A 4 x 16 mm polyethylene spacer was then placed and confirmed to be fully seated. The knee was brought into extension. The patella everted and cut in a freehand cutting technique. Drill hole s were made for a size 32 mm metal-backed press-fit patella this was then press-fit into position. T his tracked centrally through flexion extension arc through the trochlea. The wound was copiously ir rigated. The capsule and tissues were injected with a joint cocktail of ropivacaine, morphine, Torad ol, and epinephrine. Medial parapatellar arthrotomy closed using #1 Ethibond suture. The knee insti lled with platelet-rich plasma solution. Subcutaneous tissue closed using 2-0 Monocryl and the skin was stapled. Sterile dressing was applied. The patient was awakened, extubated, and taken to recove ry room in good stable condition. TOTAL TOURNIQUET TIME: 1 hour and 5 minutes. COMPLICATIONS: Fracture of the medial femoral condyle requiring repair. IMPLANTS: The [place] triathlon posterior stabilized femoral component size 5, size 4 tibia, 4 x 16 mm X3 polyethylene and an asymmetric patella 32 mm, 10 mm thick. DISPOSITION: To the recovery room, then the floor. She will be touchdown weightbearing for 6 weeks with range of motion as tolerated in a hinged knee brace was placed. /[id number]/MODL
--- NOTE | 2018-02-03 12:20 | ASDISCHSUM ---
Discharge Information Plan Status: Medically Cleared to Leave: Discharge Date:02/02/2018 01:55 PM CM D/C Disposition: ADT D/C Disposition:Shelter Facility Projected Discharge Date:02/02/2018 11:00 AM Transportation at D/C: Discharge Delay Reason: Follow-Up Date:02/02/2018 11:00 AM Discharge Slot: Final Diagnosis: Placement Information Referral Type:*Care Home/SNF Referral ID:[id number] Provider Name:[facility] Address 1:[address] Address 2: City:[place] Selection Factors: State:[place] Patient Contact Information Contact Name:ABHINAV Relationship:Son Address:[address] City:[place] Alternate Phone: State/Zip Code:[place] [address] Email: Financial Information Financial Class:Medicare Primary Plan Desc:MEDICARE INPATIENT Primary Plan Number:[id number] Secondary Plan Desc:[employer] PPO Secondary Plan Number:[id number] Assessment Information [facility] CM Progress Note CM Note CM Note Notes: Pt is s/p R TKA. PT/OT recommending SNF d/c.Pt lives alone in [place]. Discussed options with pt and she would like a referral sent to [facility]. Referral sent via [employer]. Earliest d/c would be Friday02/02/18. D/C plan: [facility], hopefully [facility] Date Signed: 01/31/2018 02:57 PM Electronically Signed By:DOROTEO Liang Case Management Discharge Plan Note Case Management Discharge Discharge Order Complete? Answers: Yes Patient to Obtain Answers: Other Notes: [facility] Medications Transportation Arranged Answers: Other Notes: [facility] Transport will Pick (Date 02/02/2018 02:00 PM & Time) Faxed Final Orders Answers: Yes Family Notified Answers: Yes Discharge Comments Notes: Patient discharged to [facility]. Transport arranged by S[facility] @ [facility]. Patient notified her sister. NANNETTE Segura to call report Date Signed: 02/02/2018 11:58 AM Electronically Signed By:Alberta Hannah RN Intervention Information Intervention Type:*IM-Signed Date of Service:02/02/2018 09:52 AM Patient Type:Inpatient Staff Member:Kristen Stallworth Hours: Discipline: Severity: Comment:
== END 2018-02-02 13:55 | DRG 470 ==
LOC: F3N 07:32
PROVIDERS: ADMIT Orthopaedic Surgery; ATTEND Orthopaedic Surgery
PROC: 8E0Y0CZ Robotic Assisted Procedure of Lower Extremity, Open Approach (ICD-10-PCS; principal; 2018-01-30 09:45)
PROC: 0SRC0JZ Replacement of Right Knee Joint with Synthetic Substitute, Open Approach (ICD-10-PCS; principal; 2018-01-30 09:45)
PROC: 0QSB04Z Reposition Right Lower Femur with Internal Fixation Device, Open Approach (ICD-10-PCS; principal; 2018-01-30 09:45)
DX: M17.11 Unilateral primary osteoarthritis, right knee (principal); M96.661 Fracture of femur following insertion of orthopedic implant, joint prosthesis, or bone plate, right leg; I10 Essential (primary) hypertension; I44.7 Left bundle-branch block, unspecified
CPT/HCPCS: 97110-GP; 97116-GP; 97161-GP; 97165-GO; 97530-GP; 97535-GO; C1713; G8978-GP-CJ; G8979-GP-CI; G8987-GO-CL; G8988-GO-CI; G8989-GO-CJ; J0171; J0690; J1100; J1650; J1885; J2250; J2270; J2405; J2704; J2795; L1832

== ENCOUNTER → 2018-09-16 | Outpatient (CLI) | payer OTHER | LOC: BRMIMAGING 14:30 | PROVIDERS: ATTEND Internal Medicine | DX: Z12.31 Encounter for screening mammogram for malignant neoplasm of breast (principal) ==